=== PATIENT | female | born 1950 | race Hispanic/Latino ===

== ENCOUNTER → 2025-02-07 | Outpatient (CLI) | payer MEDICARE, OTHER ==
--- NOTE | 2025-02-07 14:15 | HMCIMG ---
CT MAXILLOFACIAL W/O CONTRAST Indication: CHRONIC PARASINUSITIS Technique: Multiple thin section axial images were performed through the face and paranasal sinuses. Coronal reconstructions were performed in soft tissue and bone windows, as well as sagittal reconstructions. CT Dose Index (CTDI): 22.11 mGy Dose Length Product (DLP): 450.8 total mGy Findings: Paranasal sinuses are unremarkable except for retention cyst of the right ethmoidal air cells. There is no evidence of facial fracture. Visualized soft tissues are unremarkable. Visualized intracranial contents are unremarkable. Impression: No acute abnormality of the face. No evidence of acute or chronic sinusitis. This study was performed using dose reduction techniques to include automated exposure control and/or adjustment of the mA and/or kV according to patient size.
== END | disposition home or self-care (01) ==
LOC: RAH 12:33
PROVIDERS: ATTEND Family Medicine
DX: J34.1 Cyst and mucocele of nose and nasal sinus (principal); J32.4 Chronic pansinusitis
CPT/HCPCS: 70486

== ENCOUNTER → 2025-09-12 | Outpatient (CLI) | payer MEDICARE ==
--- NOTE | 2025-09-13 01:25 | HMCIMG ---
EXAM CT Scan of the Head Without Contrast CLINICAL INDICATION Headache, unspecified. TECHNIQUE Non-contrast axial CT images of the head were acquired and reviewed using standard brain and bone window algorithms. Dose modulation techniques were utilized. Total CTDIvol: 49.3 mGy. Total DLP: 837.0 mGycm. COMPARISON No prior studies are available for comparison. FINDINGS Brain Parenchyma There is diffuse prominence of the cortical sulci and basal cisterns with ex vacuo dilatation of the ventricular system, consistent with age-related cerebral atrophy. Diffuse periventricular and deep white matter hypodensities are present, in keeping with chronic small vessel ischemic changes. No acute intracranial hemorrhage, territorial infarct, mass effect, or midline shift is identified. Ventricular System and Cisterns The ventricular system is symmetrically dilated in proportion to cerebral volume loss. Basal cisterns are patent. Vascular Structures Atheromatous calcifications are noted in the intracranial arteries. Sella and Parasellar Region Partial empty sella turcica is noted. Calvarium and Skull Base Hyperostosis frontalis interna is present. No acute calvarial fracture is identified. Paranasal Sinuses and Mastoid Air Cells There is partial opacification of the right posterior ethmoid air cells. The remaining visualized paranasal sinuses are clear. The bilateral mastoid air cells are clear. Orbits and Visualized Soft Tissues The visualized orbital contents and extracranial soft tissues are unremarkable. IMPRESSION * No acute intracranial hemorrhage, mass, midline shift. * Age related atrophy and small vessel ischemic changes. * Partial opacification of the right posterior ethmoid air cells, which may represent mild sinusitis. /[place]
== END | disposition home or self-care (01) ==
LOC: RAH 13:56
PROVIDERS: ATTEND Family Medicine
DX: I67.82 Cerebral ischemia (principal); R51.9 Headache, unspecified; G31.89 Other specified degenerative diseases of nervous system; M85.2 Hyperostosis of skull
CPT/HCPCS: 70450